=== PATIENT | female | born 1985 | race Caucasian/White ===

== ENCOUNTER 2019-01-13 17:53 | Emergency (ER) | payer MEDICAID, OTHER ==
[~2019-01-13] VITALS: Ht 157.5 cm; Wt 60.8 kg
[2019-01-13 19:22] LABS: BASOPHIL % 0.3 % (0-2); PLATELET COUNT 314 x10^3mcL (130-400); RED CELL DISTRIBUTION WIDTH 13.3 % (11.5-14.5)
[2019-01-13 19:31] LABS: CALCIUM 8.6 mg/dL (8.5-10.1); CHLORIDE SERUM 98 mmol/L (98-107); CREATININE SERUM 0.7 mg/dL (0.6-1.0); GFR1 > 60 mL/min; GLUCOSE SERUM 77 mg/dL (74-106); POTASSIUM SERUM 3.1 mmol/L (3.5-5.1); SODIUM SERUM 143 mmol/L (136-145)
[2019-01-13 19:35] LABS: ALBUMIN 3.6 g/dL (3.4-5.0); ALKALINE PHOSPHATASE 54 U/L (46-116); ALT/SGPT 18 U/L (14-59); AST/SGOT 9 U/L (15-37); BILIRUBIN TOTAL 0.29 mg/dL (0.20-1.00); TOTAL PROTEIN, SERUM 7.2 g/dL (6.4-8.2)
[2019-01-13 19:55] LABS: FREE T4 0.91 ng/dL (0.76-1.46); FREE THYROXINE INDEX 2.7 ug/dL (1.4-4.5); T3 TOTAL 1.08 ng/mL; T4(THYROXINE) 7.8 ug/dL (4.7-13.3)
[2019-01-13 20:27] LABS: AMPHETAMINE QUAL UR POSITIVE (See below)
[2019-01-13 21:36] VITALS: BP 107/77
== END 2019-01-13 21:36 | disposition home or self-care (01) ==
LOC: ED 17:53
PROVIDERS: Emergency Medicine
DX: F32.9 Major depressive disorder, single episode, unspecified (principal); F15.10 Other stimulant abuse, uncomplicated; E87.6 Hypokalemia; F41.9 Anxiety disorder, unspecified; Z88.6 Allergy status to analgesic agent; Z88.5 Allergy status to narcotic agent
CPT/HCPCS: 36415; 84439; G0480

== ENCOUNTER 2019-01-16 19:54 | Emergency (ER) | payer MEDICAID, OTHER ==
[~2019-01-16] VITALS: Ht 157.5 cm; Wt 64.4 kg
[2019-01-16 20:01] VITALS: Ht 157.5 cm; Wt 64.4 kg
[2019-01-16 22:59] VITALS: BP 107/77
== END 2019-01-16 22:59 | disposition home or self-care (01) ==
LOC: ED 19:54
DX: L03.113 Cellulitis of right upper limb (principal); M54.6 Pain in thoracic spine; F32.9 Major depressive disorder, single episode, unspecified; F41.9 Anxiety disorder, unspecified; Z88.6 Allergy status to analgesic agent; Z88.5 Allergy status to narcotic agent